=== PATIENT | male | born 1945 | race Caucasian/White ===

== ENCOUNTER 2018-05-06 10:21 | Emergency (ER) | payer MEDICARE, BC ==
[2018-05-06 10:43] LABS: BILIRUBIN,URINE NEGATIVE (NEGATIVE); GLUCOSE, URINE (UA) >=1000 mg/dL (NEGATIVE); KETONES,URINE (UA) 15 mg/dL (NEGATIVE); LEUKOCYTE ESTERASE, URINE NEGATIVE (NEGATIVE); NITRITE,URINE NEGATIVE (NEGATIVE); OCCULT BLOOD,URINE MODERATE (NEGATIVE); PROTEIN,URINE NEGATIVE (NEGATIVE); UROBILINOGEN,URINE 0.2 (NORMAL) E.U./dL (NORMAL)
[2018-05-06 10:45] LABS: CLARITY,URINE CLEAR (CLEAR)
[2018-05-06 10:48] LABS: BACTERIA,URINE Rare /HPF (None Seen); SQUAMOUS EPITHELIAL CELL,UR RARE Squamous (<= Few)
--- NOTE | 2018-05-06 12:13 | ED Physician Documentation ---
History of Present Illness - Stated complaint Stated Complaint: R SIDE PX - Chief complaint Chief Complaint: General - History obtained from History obtained from: Patient - History of Present Illness Timing: Last night (This is a 72-year-old gentleman without a formal diagnosis of renal colic who for the last year or so has had short episodes of right flank pain. Last night it lasted all night and was severe with nausea but no vomiting. It does not radiate and has not moved. The pain at this juncture is mild. He denies any gross hematuria. He is approximately 3 years out from valve repair and he is on warfarin for atrial fibrillation.) Review of Systems Ten Systems: 10 systems reviewed and negative Constitutional: reports: Sweats. denies: Fever, Chills GI: reports: Nausea. denies: Abdominal Pain, Vomiting : denies: Dysuria, Frequency, Hesitancy PD PAST MEDICAL HISTORY - Present Medications Home Medications: Ambulatory Orders Medication Instructions Recorded Confirmed Hydrocodone/Acetaminophen 1 - 2 each PO Q6H PRN #14 tablet 05/06/18 [Hydrocodon-Acetaminophen 5-325] RX: Glipizide 5 PO BID 05/06/18 RX: Metoprolol Succinate 25 PO DAILY 05/06/18 RX: Warfarin Sodium PO 05/06/18 RX: Warfarin Sodium [Coumadin] 05/06/18 RX: diltiaZEM [Cardizem] 120 DAILY 05/06/18 RX: metFORMIN [Glucophage] 1,000 PO BID 05/06/18 Tamsulosin [Flomax] 0.4 mg PO DAILY #14 capsule 05/06/18 - Allergies Allergies/Adverse Reactions: Allergies Allergy/AdvReac Type Severity Reaction Status Date / Time No Known Drug Allergies Allergy Verified 05/06/18 13:13 PD ED PE NORMAL - Vitals Vital signs reviewed: Yes - General General: Alert and oriented X 3, No acute distress - Abdomen Abdomen: Normal bowel sounds, Soft, Non tender - Back Back: No CVA TTP, No spinal TTP - Extremities Extremities: No edema, No calf tenderness / cord - Neuro Neuro: Alert and oriented X 3, Normal speech - Psych Psych: Normal mood, Normal affect Results - Vitals Vitals: Vital Signs - 24 hr 05/06/18 05/06/18 10:27 13:00 Temperature 36.3 C L 37.1 C Heart Rate 73 62 Respiratory 16 18 Rate Blood Pressure 132/63 H 139/71 H O2 Saturation 99 98 Oxygen O2 Source Room air - Labs Labs: Laboratory Tests 05/06/18 05/06/18 05/06/18 10:30 12:34 12:34 WBC 13.3 H RBC 4.76 Hgb 14.5 Hct 43.3 MCV 91.0 MCH 30.6 MCHC 33.6 RDW 12.9 Plt Count 201 MPV 6.7 L Neut # (Auto) 11.4 H Lymph # (Auto) 0.9 L [place] # (Auto) 0.8 Eos # (Auto) 0.0 Baso # (Auto) 0.1 Absolute Nucleated RBC 0.01 Nucleated RBC % 0.0 PT 28.2 H INR 2.5 H Sodium Potassium Chloride Carbon Dioxide Anion Gap BUN Creatinine Estimated GFR (MDRD) Glucose Calcium Total Bilirubin AST ALT Alkaline Phosphatase Total Protein Albumin Globulin Albumin/Globulin Ratio Lipase Urine Color YELLOW Urine Clarity CLEAR Urine pH 6.0 Ur Specific [place] >=1.030 H Urine Protein NEGATIVE Urine Glucose (UA) >=1000 H Urine Ketones 15 H Urine Occult Blood MODERATE H Urine Nitrite NEGATIVE Urine Bilirubin NEGATIVE Urine Urobilinogen 0.2 (NORMAL) Ur Leukocyte Esterase NEGATIVE Urine RBC 6-10 H Urine WBC 0-3 Ur Squamous Epith Cells RARE Squamous Urine Bacteria Rare Ur Microscopic Review INDICATED Urine Culture Comments NOT INDICATED 05/06/18 12:34 WBC RBC Hgb Hct MCV MCH MCHC RDW Plt Count MPV Neut # (Auto) Lymph # (Auto) [place] # (Auto) Eos # (Auto) Baso # (Auto) Absolute Nucleated RBC Nucleated RBC % PT INR Sodium 136 Potassium 4.0 Chloride 99 L Carbon Dioxide 27 Anion Gap 10.0 BUN 30 H Creatinine 1.7 H Estimated GFR (MDRD) 40 L Glucose 164 H Calcium 10.0 Total Bilirubin 0.7 AST 33 ALT 21 Alkaline Phosphatase 69 Total Protein 8.6 H Albumin 4.9 Globulin 3.7 Albumin/Globulin Ratio 1.3 Lipase 31 Urine Color Urine Clarity Urine pH Ur Specific [place] Urine Protein Urine Glucose (UA) Urine Ketones Urine Occult Blood Urine Nitrite Urine Bilirubin Urine Urobilinogen Ur Leukocyte Esterase Urine RBC Urine WBC Ur Squamous Epith Cells Urine Bacteria Ur Microscopic Review Urine Culture Comments - Rads (name of study) CT KUB Radiology: EMP read contemporaneously (3 mm right mid ureteral stone with obstruction, left nephrolithiasis.) PD MEDICAL DECISION MAKING - ED course ED course: 72-year-old gentleman anticoagulated for atrial fibrillation presents with right flank pain most consistent with renal colic but the differential diagnosis would also include AAA and other vascular abnormality. CT scan proves a diagnosis of a 3 mm ureterolith. He declined any pain medication here but he was given as needed prescription for hydrocodone as well as Flomax. Given his tenuous renal function he was advised to push fluids and avoid NSAIDs. He will follow-up with urologist. Departure - Departure Disposition: Home, Self Care Clinical Impression: Renal colic on right side, Adequate anticoagulation on anticoagulant therapy Condition: Good Record reviewed to determine appropriate education?: Yes Instructions: ED Stone Renal W Colic Prescriptions: Hydrocodone/Acetaminophen [Hydrocodon-Acetaminophen 5-325] 1 - 2 each PO Q6H PRN #14 tablet PRN Reason: pain Tamsulosin [Flomax] 0.4 mg PO DAILY #14 capsule Comments: Your INR today is 2.5 which is fine. He should drink plenty of fluids, you appear dehydrated on your lab work. Drink at least 8 glasses of water a day. He should follow-up with urologist, my recommendation will be Dr. Millan in [place], the phone number is [phone]. Return if worse. Avoid nonsteroidal anti-inflammatory drugs such as ibuprofen or Aleve. Discharge Date/Time: 05/06/18 13:27
[2018-05-06 12:49] LABS: BASOPHILS # (AUTO) 0.1 10^3/uL (0.0-0.1); BASOPHILS % (AUTO) 0.6 %; HGB - HEMOGLOBIN 14.5 g/dL (14.0-18.0); LYMPHOCYTES # (AUTO) 0.9 10^3/uL (1.5-3.5); LYMPHOCYTES % (AUTO) 6.8 %; MEAN CORPUSCULAR HEMOGLOBIN 30.6 pg (27.0-31.0); MEAN CORPUSCULAR HGB CONC 33.6 g/dL (32.0-36.0); MEAN PLATELET VOLUME 6.7 fL (7.4-11.4); MONOCYTES # (AUTO) 0.8 10^3/uL (0.0-1.0); MONOCYTES % (AUTO) 6.3 %; NEUTROPHILS # (AUTO) 11.4 10^3/uL (1.5-6.6); NEUTROPHILS % (AUTO) 86.3 %; PLT - PLATELET COUNT 201 10^3/uL (130-450); RED BLOOD COUNT 4.76 10^6/uL (4.70-6.10); RED CELL DISTRIBUTION WIDTH 12.9 % (12.0-15.0); WHITE BLOOD COUNT 13.3 x10^3/uL (4.8-10.8)
[2018-05-06 12:53] LABS: ALBUMIN 4.9 g/dL (3.2-5.5); ALBUMIN/GLOBULIN RATIO 1.3 (1.0-2.2); BILIRUBIN,TOTAL 0.7 mg/dL (0.2-1.0); CREATININE 1.7 mg/dL (0.6-1.2); INR 2.5 (0.8-1.2); PT - PROTHROMBIN TIME 28.2 secs (9.9-12.6); TOTAL PROTEIN 8.6 g/dL (6.7-8.2)
--- NOTE | 2018-05-06 13:11 | CT Report ---
Reason: R flank pain Procedure Date: 05/06/2018 Accession Number: [id number] / [id number] Procedure: CT - Abdomen/Pelvis W/O CPT Code: FULL RESULT: EXAM: CT ABDOMEN AND PELVIS (CT KUB) EXAM DATE: 05/06/2018 12:49 PM. CLINICAL HISTORY: Right flank pain. COMPARISONS: None. TECHNIQUE: Routine axial helical CT imaging was performed through the abdomen and pelvis without IV contrast. Reconstructions: Coronal and sagittal. In accordance with CT protocol optimization, one or more of the following dose reduction techniques were utilized for this exam: automated exposure control, adjustment of mA and/or KV based on patient size, or use of iterative reconstructive technique. FINDINGS: Lung Bases: Unremarkable. Right Kidney/Ureter: There is moderate right-sided hydronephrosis and perinephric fat stranding with a 3 mm obstructing stone in the right mid ureter. No additional kidney stones. Left Kidney/Ureter: Nonobstructing 2 mm stone is seen in the lower pole left kidney. No hydronephrosis. Other Solid Organs: Noncontrast images of the solid organs demonstrate no acute findings. Subcentimeter hypodensities in the liver is seen, too small to further characterize but probable small cyst (image 14/3). Gallbladder/Bile Ducts: Unremarkable. Peritoneal Cavity: There is minimal predominantly left hemicolon diverticulosis without evidence of diverticulitis. There is no obstruction or ileus. No free fluid or free air. Pelvic Organs: No bladder stones or wall thickening. Noncontrast images of the visualized pelvic organs are unremarkable. Vasculature: Unremarkable. Other: Diffuse degenerative and scoliotic changes are seen in the spine. No acute osseous abnormality is demonstrated. IMPRESSION: 1. Moderate right-sided hydronephrosis with 3 mm obstructing stone in the right mid ureter. 2. Left-sided nephrolithiasis without hydronephrosis. 3. Minimal colonic diverticulosis. RADIA
[2018-05-06 13:13] VITALS: BP 139/71
== END 2018-05-06 13:27 | disposition home or self-care (01) ==
LOC: ED 10:21
DX: N13.2 Hydronephrosis with renal and ureteral calculous obstruction (principal); Z86.79 Personal history of other diseases of the circulatory system; Z79.01 Long term (current) use of anticoagulants
CPT/HCPCS: 36415; 74176; 80053; 81001; 81003; 83690; 85025; 85610; 87086; 99283; 99284

== ENCOUNTER 2019-01-11 23:02 | Emergency (ER) | payer MEDICARE, BC ==
--- NOTE | 2019-01-11 23:20 | ED Physician Documentation ---
PD HPI ABD PAIN - Stated complaint Stated Complaint: BACK SIDE PX - Chief complaint Chief Complaint: Abd Pain - History obtained from History obtained from: Patient - History of Present Illness Timing - onset: Enter time (17:00), Today Timing - duration: Hours Timing - details: Abrupt onset, Waxing and waning Pain level now: 6 Quality: Pain Location: RUQ Radiation: Right flank Improved by: Other (nothing) Worsened by: Other (no exacerbating factors) Associated symptoms: No: Fever, Nausea, Vomiting, Diarrhea, Constipation, Dysuria, Hematuria Similar symptoms before: Diagnosis (similar to previous episode of renal colic (April 2018)) Recently seen: Not recently seen Review of Systems Constitutional: denies: Fever, Chills, Sweats Cardiac: reports: Reviewed and negative Respiratory: reports: Reviewed and negative GI: reports: Abdominal Pain (right flank and right upper parathoracic, not abdominal per se). denies: Nausea, Vomiting, Constipation, Diarrhea : denies: Dysuria, Frequency, Hematuria Musculoskeletal: reports: Back pain PD PAST MEDICAL HISTORY - Past Medical History Neuro: None Endocrine/Autoimmune: Type 2 diabetes : None HEENT: Chronic hearing loss Psych: Depression Musculoskeletal: None - Past Surgical History Cardiovascular: Valve replacement, Pacemaker - Present Medications Home Medications: Ambulatory Orders Medication Instructions Recorded Confirmed Glipizide 5 PO BID 05/06/18 Hydrocodone/Acetaminophen 1 - 2 each PO Q6H PRN #14 tablet 05/06/18 [Hydrocodon-Acetaminophen 5-325] Metoprolol Succinate 25 PO DAILY 05/06/18 Tamsulosin [Flomax] 0.4 mg PO DAILY #14 capsule 05/06/18 Warfarin Sodium PO 05/06/18 Warfarin Sodium [Coumadin] 05/06/18 diltiaZEM [Cardizem] 120 DAILY 05/06/18 metFORMIN [Glucophage] 1,000 PO BID 05/06/18 Oxycodone HCl/Acetaminophen 1 - 2 each PO Q6H PRN #14 tablet 01/12/19 [Percocet 5-325 mg Tablet] Tamsulosin [Flomax] 0.4 mg PO DAILY #10 capsule 01/12/19 - Allergies Allergies/Adverse Reactions: Allergies Allergy/AdvReac Type Severity Reaction Status Date / Time No Known Drug Allergies Allergy Verified 01/11/19 23:10 - Social History Does the pt smoke?: No Smoking Status: Never smoker Does the pt drink ETOH?: No - Immunizations Immunizations are current?: Yes PD ED PE NORMAL - Vitals Vital signs reviewed: Yes - General General: Alert and oriented X 3, No acute distress, Well developed/nourished - Cardiac Cardiac: RRR, No murmur - Respiratory Respiratory: No respiratory distress, Clear bilaterally - Abdomen Abdomen: Soft, Non tender - Back Back: No CVA TTP - Derm Derm: Normal color, Warm and dry, No rash Results - Vitals Vitals: Vital Signs - 24 hr 01/11/19 01/12/19 01/12/19 23:05 00:04 00:27 Temperature 36.6 C 36.8 C Heart Rate 62 68 Respiratory 16 16 Rate Blood Pressure 145/67 H 136/78 H O2 Saturation 99 98 Oxygen O2 Source Room air - Labs Labs: Laboratory Tests 01/11/19 01/11/19 01/11/19 23:12 23:30 23:30 WBC 14.6 H RBC 4.30 L Hgb 13.4 L Hct 39.9 L MCV 92.8 MCH 31.2 H MCHC 33.6 RDW 12.4 Plt Count 173 MPV 8.5 Neut # (Auto) 12.9 H Lymph # (Auto) 0.9 L [place] # (Auto) 0.7 Eos # (Auto) 0.1 Baso # (Auto) 0.0 Absolute Nucleated RBC 0.00 Nucleated RBC % 0.0 PT INR Sodium 138 Potassium 4.2 Chloride 101 Carbon Dioxide 28 Anion Gap 9.0 BUN 29 H Creatinine 1.3 H Estimated GFR (MDRD) 54 L Glucose 236 H Calcium 9.1 Total Bilirubin 0.7 AST 21 ALT 19 Alkaline Phosphatase 58 Total Protein 7.7 Albumin 4.5 Globulin 3.2 Albumin/Globulin Ratio 1.4 Lipase 36 Urine Color YELLOW Urine Clarity CLEAR Urine pH 6.0 Ur Specific [place] 1.020 Urine Protein TRACE Urine Glucose (UA) 500 H Urine Ketones TRACE Urine Occult Blood LARGE H Urine Nitrite NEGATIVE Urine Bilirubin NEGATIVE Urine Urobilinogen 0.2 (NORMAL) Ur Leukocyte Esterase NEGATIVE Urine RBC 6-10 H Urine WBC 0-3 Ur Squamous Epith Cells FEW Squamous Urine Bacteria Rare Ur Microscopic Review INDICATED Urine Culture Comments NOT INDICATED 01/11/19 23:30 WBC RBC Hgb Hct MCV MCH MCHC RDW Plt Count MPV Neut # (Auto) Lymph # (Auto) [place] # (Auto) Eos # (Auto) Baso # (Auto) Absolute Nucleated RBC Nucleated RBC % PT 28.3 H INR 2.5 H Sodium Potassium Chloride Carbon Dioxide Anion Gap BUN Creatinine Estimated GFR (MDRD) Glucose Calcium Total Bilirubin AST ALT Alkaline Phosphatase Total Protein Albumin Globulin Albumin/Globulin Ratio Lipase Urine Color Urine Clarity Urine pH Ur Specific [place] Urine Protein Urine Glucose (UA) Urine Ketones Urine Occult Blood Urine Nitrite Urine Bilirubin Urine Urobilinogen Ur Leukocyte Esterase Urine RBC Urine WBC Ur Squamous Epith Cells Urine Bacteria Ur Microscopic Review Urine Culture Comments PD MEDICAL DECISION MAKING - ED course Complexity details: reviewed old records, reviewed results, re-evaluated patient, considered differential, d/w patient, d/w family ED course: patient says his symptoms are the same as episode of renal colic he had in April; at that time, he was evaluated in this ED and w/u included CT A/P which demonstrated ureteral stone. Tonight, hematuria on UA and remainder of labs reassuring (creatinine improved compared to April). Presentation and results are c/w renal colic and thus imaging not performed at this time. He was reluctant to take any analgesics but releneted shortly before discharge home, given take-home percocet of which he took two before leaving ED (being driven home). Departure - Departure Disposition: Home, Self Care Clinical Impression: Renal colic on right side, Adequate anticoagulation on anticoagulant therapy Condition: Good Instructions: ED Stone Renal W Colic Follow-Up: Sony Spencer MD [Primary Care Provider] - Prescriptions: Oxycodone HCl/Acetaminophen [Percocet 5-325 mg Tablet] 1 - 2 each PO Q6H PRN #14 tablet PRN Reason: pain Tamsulosin [Flomax] 0.4 mg PO DAILY #10 capsule Comments: You should follow up with a urologist if possible. If you do not have a urologist, you can contact your insurance provider or your primary care physician's office to ask for a referral. Discharge Date/Time: 01/12/19 00:28
[2019-01-11 23:21] LABS: BILIRUBIN,URINE NEGATIVE (NEGATIVE); GLUCOSE, URINE (UA) 500 mg/dL (NEGATIVE); KETONES,URINE (UA) TRACE mg/dL (NEGATIVE); LEUKOCYTE ESTERASE, URINE NEGATIVE (NEGATIVE); NITRITE,URINE NEGATIVE (NEGATIVE); OCCULT BLOOD,URINE LARGE (NEGATIVE); PROTEIN,URINE TRACE mg/dL (NEGATIVE); UROBILINOGEN,URINE 0.2 (NORMAL) E.U./dL (NORMAL)
[2019-01-11 23:22] LABS: CLARITY,URINE CLEAR (CLEAR)
[2019-01-11 23:34] LABS: BASOPHILS % (AUTO) 0.2 %; EOSINOPHILS # (AUTO) 0.1 10^3/uL (0.0-0.7); EOSINOPHILS % (AUTO) 0.4 %; HGB - HEMOGLOBIN 13.4 g/dL (14.0-18.0); LYMPHOCYTES # (AUTO) 0.9 10^3/uL (1.5-3.5); LYMPHOCYTES % (AUTO) 5.9 %; MEAN CORPUSCULAR HEMOGLOBIN 31.2 pg (27.0-31.0); MEAN CORPUSCULAR HGB CONC 33.6 g/dL (32.0-36.0); MEAN CORPUSCULAR VOLUME 92.8 fL (80.0-94.0); MEAN PLATELET VOLUME 8.5 fL (7.4-11.4); MONOCYTES # (AUTO) 0.7 10^3/uL (0.0-1.0); MONOCYTES % (AUTO) 4.5 %; NEUTROPHILS # (AUTO) 12.9 10^3/uL (1.5-6.6); NEUTROPHILS % (AUTO) 88.3 %; PLT - PLATELET COUNT 173 10^3/uL (130-450); RED CELL DISTRIBUTION WIDTH 12.4 % (12.0-15.0); WHITE BLOOD COUNT 14.6 x10^3/uL (4.8-10.8)
[2019-01-11 23:45] LABS: INR 2.5 (0.8-1.2); PT - PROTHROMBIN TIME 28.3 secs (9.9-12.6)
[2019-01-11 23:47] LABS: ALBUMIN 4.5 g/dL (3.2-5.5); ALBUMIN/GLOBULIN RATIO 1.4 (1.0-2.2); BILIRUBIN,TOTAL 0.7 mg/dL (0.2-1.0); CALCIUM 9.1 mg/dL (8.5-10.3); CREATININE 1.3 mg/dL (0.6-1.2); TOTAL PROTEIN 7.7 g/dL (6.7-8.2)
[2019-01-11 23:48] LABS: BACTERIA,URINE Rare /HPF (None Seen); SQUAMOUS EPITHELIAL CELL,UR FEW Squamous (<= Few)
[2019-01-12] MEDS ORDERED: oxyCODONE/ACET 5/325 Prepack 4 PO STA (00:14)
[2019-01-12] MEDS ORDERED: TAMSULOSIN 0.4 MG CAPSULE PO STA (00:14)
[2019-01-12 00:28] VITALS: BP 136/78
== END 2019-01-12 00:28 | disposition home or self-care (01) ==
LOC: ED 23:02
DX: N23 Unspecified renal colic (principal); R31.9 Hematuria, unspecified; Z87.442 Personal history of urinary calculi; Z79.01 Long term (current) use of anticoagulants; Z95.2 Presence of prosthetic heart valve; E11.9 Type 2 diabetes mellitus without complications; Z79.84 Long term (current) use of oral hypoglycemic drugs
CPT/HCPCS: 36415; 80053; 81001; 83690; 85025; 85610; 99283; 99284; A9270; 81003; 87086

== ENCOUNTER 2019-03-01 09:46 | Outpatient (CLI) | payer MEDICARE, BC ==
[2019-03-01 10:11] LABS: BASOPHILS % (AUTO) 0.3 %; EOSINOPHILS # (AUTO) 0.1 10^3/uL (0.0-0.7); EOSINOPHILS % (AUTO) 1.7 %; LYMPHOCYTES # (AUTO) 0.9 10^3/uL (1.5-3.5); MEAN CORPUSCULAR HEMOGLOBIN 30.8 pg (27.0-31.0); MEAN CORPUSCULAR HGB CONC 32.7 g/dL (32.0-36.0); MEAN CORPUSCULAR VOLUME 94.3 fL (80.0-94.0); MEAN PLATELET VOLUME 8.8 fL (7.4-11.4); MONOCYTES # (AUTO) 0.5 10^3/uL (0.0-1.0); MONOCYTES % (AUTO) 6.9 %; NEUTROPHILS # (AUTO) 5.5 10^3/uL (1.5-6.6); NEUTROPHILS % (AUTO) 77.8 %; PLT - PLATELET COUNT 190 10^3/uL (130-450); RED BLOOD COUNT 4.54 10^6/uL (4.70-6.10); RED CELL DISTRIBUTION WIDTH 12.4 % (12.0-15.0)
[2019-03-01 10:26] LABS: CALCIUM 9.5 mg/dL (8.5-10.3); CREATININE 1.1 mg/dL (0.6-1.2)
[2019-03-01] MEDS ORDERED: IOVERSOL 320 100 ML VIAL IVP ONE ×2 (10:28→10:49)
--- NOTE | 2019-03-02 08:54 | CT Report ---
Reason: MICROHEMATURIA Procedure Date: 03/01/2019 Accession Number: [id number] / [id number] Procedure: CT - IVP CPT Code: Final Report FULL RESULT: EXAM: CT ABDOMEN AND PELVIS WITHOUT AND WITH CONTRAST (CT IVP) EXAM DATE: 03/01/2019 10:59 AM. CLINICAL HISTORY: Microhematuria. COMPARISONS: ABDOMEN/PELVIS W/O 05/06/2018 12:39 PM. TECHNIQUE: Routine helical imaging was performed through the kidneys, ureters and bladder in the precontrast, postcontrast and delayed phase. IV Contrast: OPTI 320; 100 mL. Reconstructions: Coronal and sagittal. In accordance with CT protocol optimization, one or more of the following dose reduction techniques were utilized for this exam: automated exposure control, adjustment of mA and/or KV based on patient size, or use of iterative reconstructive technique. FINDINGS: Lung Bases: Unremarkable. Stable borderline cardiac enlargement and transvenous cardiac leads. Liver: A stable small hypodensity likely represents a cyst. Gallbladder/Bile Ducts: Unremarkable. Spleen: Normal. Pancreas: Normal. Adrenal Glands: Normal. Kidneys/Bladder: Right Kidney/Ureter: Again demonstrated is a proximal ureteral calculus near the level of the previously demonstrated calculus. The calculus measures 4.5 mm and is at the upper L4 level. There is mild hydronephrosis and proximal ureteral dilatation, decreased from the prior exam. There is also a decrease in the perinephric stranding which is now mild and symmetric with the left. The delayed images demonstrate no significant delayed enhancement or excretion. Contrast opacifies the entire right ureter. This is consistent with a partially obstructing calculus. There is a segment of irregular narrowing of the mid right ureter which may be related to peristalsis. A stenosis cannot be excluded. No heidy filling defect or extrinsic abnormality demonstrated at that level. No other urolithiasis demonstrated. No renal mass. Left Kidney/Ureter: No renal or ureteral stones. No hydronephrosis or hydroureter. No masses. Bladder: No stones. No wall thickening or mass. Peritoneal Cavity/Bowel: Colonic diverticulosis without evidence of diverticulitis. No free fluid, free air or adenopathy. No masses or acute inflammatory process. The appendix appears normal. Pelvic Organs: Visualized pelvic organs are unremarkable. Vasculature: Calcifications, without an aneurysm. Bones: Spine degenerative disease. No acute abnormalities. Other: Minimal fat-containing umbilical hernia. IMPRESSION: 1. Partially obstructing 4.5 mm proximal right ureteral calculus. 2. A short segment of possible irregular narrowing of the right ureter may be incidental and related to peristalsis. A stricture is not excluded. 3. Stable chronic findings, as above. RADIA
== END 2019-03-01 09:47 | disposition home or self-care (01) ==
LOC: DI 09:46
PROVIDERS: ATTEND Urology
DX: N13.2 Hydronephrosis with renal and ureteral calculous obstruction (principal); K42.9 Umbilical hernia without obstruction or gangrene; K57.30 Diverticulosis of large intestine without perforation or abscess without bleeding
CPT/HCPCS: 36415; 74178; 80048; 85025; Q9967

== ENCOUNTER 2019-03-12 15:38 | Outpatient (CLI) | payer MEDICARE, BC ==
--- NOTE | 2019-03-13 13:50 | XRAY Report ---
Reason: URETERAL CALCULUS, PRE OP, A FIB Procedure Date: 03/12/2019 Accession Number: [id number] / [id number] Procedure: XR - Chest 2 View X-Ray CPT Code: 79305 Final Report FULL RESULT: EXAM: CHEST RADIOGRAPHY EXAM DATE: 03/12/2019 03:59 PM. CLINICAL HISTORY: URETERAL CALCULUS, PRE OP, A FIB. COMPARISON: None. TECHNIQUE: 2 views. FINDINGS: Lungs/Pleura: No focal opacities evident. No pleural effusion. No pneumothorax. Mild bilateral hyperinflation. Mediastinum: Normal heart size. Status post median sternotomy and cardiac surgery. Transvenous cardiac leads, in expected position. Other: None. IMPRESSION: 1. No definite acute abnormality of the chest. 2. Mild pulmonary hyperinflation. RADIA
== END 2019-03-12 15:39 | disposition home or self-care (01) ==
LOC: DI 15:38
PROVIDERS: ATTEND Urology
DX: Z01.818 Encounter for other preprocedural examination (principal); N20.1 Calculus of ureter; I48.91 Unspecified atrial fibrillation
CPT/HCPCS: 71046; 93005

== ENCOUNTER 2019-04-09 13:33 | Outpatient (CLI) | payer MEDICARE, BC ==
--- NOTE | 2019-04-14 09:17 | XRAY Report ---
Reason: URETAL CALCULUS Procedure Date: 04/09/2019 Accession Number: [id number] / [id number] Procedure: XR - Abdomen 1 View X-Ray CPT Code: 57938 Final Report FULL RESULT: EXAM: ABDOMEN RADIOGRAPHY EXAM DATE: 04/09/2019 01:49 PM HISTORY: URETAL CALCULUS COMPARISON: NONE TECHNIQUE: SINGLE AP VIEW FINDINGS: Unremarkable bowel gas pattern. No abnormal distention. Small amount of stool in the colon. Intact and unremarkable right nephroureteral stent with appropriately looped and positioned proximal and distal terminations. There appears to be an approximately 4 mm calculus adjacent to the proximal aspect of the stent, likely at the right UPJ level. No other calculus seen along the course of the stent. Focal high density in the paraspinal region on the left appears to be the tip of the transverse process at L3. There is also a 1 x 3 mm linear density projecting the region of the left kidney inferior pole which could be a true renal calculus. No organomegaly. Moderate lumbar spondylosis and mild levo convexity. IMPRESSION: Intact and well-positioned right nephroureteral stent with apparent proximal 4 mm calculus at the UPJ region. Question of small calculus of the left kidney inferior pole. RADIA
== END 2019-04-09 13:34 | disposition home or self-care (01) ==
LOC: DI 13:33
PROVIDERS: ATTEND Urology
DX: N20.1 Calculus of ureter (principal)
CPT/HCPCS: 74018

== ENCOUNTER 2019-05-08 11:11 | Outpatient (CLI) | payer MEDICARE, BC | END 2019-05-08 11:12 | disposition home or self-care (01) | LOC: RT 11:11 | PROVIDERS: ATTEND Urology | DX: Z01.810 Encounter for preprocedural cardiovascular examination (principal); N20.1 Calculus of ureter; I48.91 Unspecified atrial fibrillation | CPT/HCPCS: 93005 ==

== ENCOUNTER 2020-03-14 13:01 | Outpatient (CLI) | payer MEDICARE, BC ==
--- NOTE | 2020-03-14 16:43 | XRAY Report ---
PROCEDURE: Abdomen 1 View X-Ray INDICATIONS: URETERAL CALCULUS TECHNIQUE: 1 view of the abdomen were acquired. COMPARISON: X-ray abdomen 04/09/2019 FINDINGS: Surgical changes and devices: None. Bowel: No pneumoperitoneum. The bowel gas pattern is normal. Soft tissues: No masses; visualized solid organ contours appear normal in size. No suspicious abdom inal calcifications. Bones: No suspicious bony abnormalities. IMPRESSION: No visualized calcification overlying the expected course of the kidneys or ureters. Reviewed by: Salima Mast MD on 03/14/2020 4:41 PM PST Approved by: Salima Mast MD on 03/14/2020 4:41 PM PST Station ID: [id number]
== END 2020-03-14 13:02 | disposition home or self-care (01) ==
LOC: DI 13:01
PROVIDERS: ATTEND Urology
DX: N20.1 Calculus of ureter (principal)
CPT/HCPCS: 74018

== ENCOUNTER 2021-03-27 21:17 | Outpatient (CLI) | payer MEDICARE, BC ==
--- NOTE | 2021-03-27 23:36 | Ultrasound Report ---
PROCEDURE: Duplex Ext Veins Left INDICATIONS: CONTUSION OF LEFT LOWER LEG, INITIAL ENCOUNTER TECHNIQUE: Real-time imaging, as well as color and pulse Doppler interrogation, were performed of the lower extr emity deep veins from the inguinal ligament to the popliteal fossa. COMPARISON: None. FINDINGS: The deep veins are normally compressible, and free of intraluminal thrombus. Color and pu lse Doppler demonstrate normal phasic intraluminal flow. There is normal augmentation response to di stal compression maneuver. Nonspecific soft tissue edema is seen in the calf. An ovoid avascular lesion is seen in the medial ca lf measuring 1.5 x 1.1 x 1.7 cm, likely representing a small hematoma. Fluid is seen tracking along t he between muscular layers measuring approximately 4.9 x 0.6 x 1.6 cm. A focal heterogeneously hyperechoic lesion in the left proximal thigh measuring 1.7 x 0.7 x 2.7 cm co uld represent a lipoma, among other benign and malignant soft tissue masses. IMPRESSION: 1.No sonographic evidence of deep venous thrombosis in the left lower extremity. 2.Complex fluid collections are seen in the posterior medial lower leg deep to the gastrocnemius musc le that may represent a small hematoma related to a muscular injury. MRI of the tibia/fibula be obtai kay for further evaluation if indicated clinically. 3.Possible 2.7 cm hyperechoic circumscribed masslike lesion in the proximal thigh could represent a l ipoma among other benign or malignant soft tissue masses. If indicated clinically, a left femur MRI c ould be obtained to further investigate. Reviewed by: Ryley Qiu MD on 03/27/2021 11:35 PM PST Approved by: Ryley Qiu MD on 03/27/2021 11:35 PM PST Station ID: [id number]
== END 2021-03-27 21:18 | disposition home or self-care (01) ==
LOC: DI 21:17
PROVIDERS: ATTEND Physician Assistant
DX: S80.12XA Contusion of left lower leg, initial encounter (principal); R93.6 Abnormal findings on diagnostic imaging of limbs; R93.89 Abnormal findings on diagnostic imaging of other specified body structures

== ENCOUNTER 2023-07-16 08:00 | Outpatient (CLI) | payer MEDICARE, BC | END 2023-07-16 23:59 | disposition home or self-care (01) | LOC: LAB.N 08:00 | PROVIDERS: ATTEND Registered Nurse | DX: R52 Pain, unspecified (principal); R53.83 Other fatigue; R53.81 Other malaise; S80.12XA Contusion of left lower leg, initial encounter; R81 Glycosuria; R31.9 Hematuria, unspecified; R82.79 Other abnormal findings on microbiological examination of urine | CPT/HCPCS: 82962; 87637 ==

== ENCOUNTER 2023-07-16 08:00 | Outpatient (CLI) | payer MEDICARE, BC ==
[2023-07-16 17:39] LABS: INFLUENZA A- RESP PCR PANEL NOT DETECTED; INFLUENZA B - RESP PCR PANEL NOT DETECTED; RSV- RESP PCR PANEL NOT DETECTED; SARS-CoV-2 -RESP PCR PANEL NOT DETECTED
== END 2023-07-16 23:59 | disposition home or self-care (01) ==
LOC: LAB.N 08:00
PROVIDERS: ATTEND Registered Nurse
DX: R81 Glycosuria (principal); R52 Pain, unspecified; R53.83 Other fatigue; R31.9 Hematuria, unspecified; R82.79 Other abnormal findings on microbiological examination of urine; R05.1 Acute cough; R53.81 Other malaise; S80.12XA Contusion of left lower leg, initial encounter
CPT/HCPCS: 87086; 87637

== ENCOUNTER 2023-07-16 16:01 | Outpatient (CLI) | payer MEDICARE, BC ==
--- NOTE | 2023-07-18 07:49 | XRAY Report ---
PROCEDURE: Chest 2V INDICATIONS: BODY ACHES TECHNIQUE: 2 views of the chest were acquired. COMPARISON: None. FINDINGS: Surgical changes and devices: Patient is status post median sternotomy. Cardiac pacemaker is unremar kable. Lungs and pleura: No pleural effusions or pneumothorax. Lungs are clear. Mediastinum: Mediastinal contours appear normal. Heart size is normal. Bones and chest wall: No suspicious bony lesions. Overlying soft tissues appear unremarkable. IMPRESSION: No acute cardiopulmonary process. Reviewed by: Shanta Marin MD on 07/18/2023 7:47 AM PDT Approved by: Shanta Marin MD on 07/18/2023 7:47 AM PDT Station ID: [id number]
== END 2023-07-16 16:02 | disposition home or self-care (01) ==
LOC: DI 16:01
PROVIDERS: ATTEND Registered Nurse
DX: M79.10 Myalgia, unspecified site (principal); R53.83 Other fatigue; R53.81 Other malaise; R81 Glycosuria; R52 Pain, unspecified; R31.9 Hematuria, unspecified; R82.79 Other abnormal findings on microbiological examination of urine; R05.1 Acute cough; S80.12XA Contusion of left lower leg, initial encounter
CPT/HCPCS: 87086; 87637

== ENCOUNTER 2023-09-02 13:19 | Emergency (ER) | payer MEDICARE, BC ==
--- NOTE | 2023-09-02 13:43 | ED Physician Documentation ---
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 No focal weaknesses. Normal speech.) Timing - details: Abrupt onset, Now resolved (improving with now memory of events from earlier today and yesterday, but does not remember events occurred during the memory loss event.) Quality / character: Confused (more pointedly, with acute short term/recent memory deficit of the day and yesterday.) Associated symptoms: No: Fever, Headache, Focal weakness (he wasa ble to walk without imbalance, normal articulation and content of speech, just not able to remember events currently/recent.) Contributing factors: No: Recent med change, Recent illness Basline status: Alert and oriented X 3, Ambulatory Similar symptoms before: Has not had sx before Review of Systems Constitutional: denies: Fever Eyes: denies: Loss of vision Nose: denies: Rhinorrhea / runny nose, Congestion Throat: denies: Sore throat Respiratory: denies: Cough Neurologic: reports: Confused. denies: Focal weakness, Difficulty speaking, Near syncope, Altered mental status, Head injury PD PAST MEDICAL HISTORY - Past Medical History Neuro: None Endocrine/Autoimmune: Type 2 diabetes : None HEENT: Chronic hearing loss Psych: Depression Musculoskeletal: None - Past Surgical History Past Surgical History: Yes Cardiovascular: Valve replacement, Pacemaker - Present Medications Home Medications: Ambulatory Orders Medication Instructions Recorded Confirmed Warfarin Sodium 7.5 mg PO DAILY 05/06/18 09/02/23 diltiaZEM [Cardizem] 120 mg PO DAILY 05/06/18 09/02/23 glipiZIDE [Glipizide] 5 mg PO BID 05/06/18 09/02/23 metFORMIN [Glucophage] 500 mg PO BID 05/06/18 09/02/23 Rosuvastatin Calcium 5 mg PO DAILY 09/02/23 09/02/23 Sotalol [Betapace] 80 mg PO BID 09/02/23 09/02/23 lisinopriL [Zestril] 5 mg PO DAILY 09/02/23 09/02/23 - Allergies Allergies/Adverse Reactions: Allergies Allergy/AdvReac Type Severity Reaction Status Date / Time No Known Drug Allergies Allergy Verified 01/11/19 23:10 - Social History Does the pt smoke?: No Smoking Status: Never smoker Does the pt drink ETOH?: No Does the pt have substance abuse?: No - Immunizations Immunizations are current?: Yes - POLST Patient has POLST: No PD ED PE NORMAL - Vitals Vital signs reviewed: Yes - General General: Alert and oriented X 3, No acute distress, Well developed/nourished - HEENT HEENT: Atraumatic - Neck Neck: Supple, no meningeal sign, No adenopathy, No bruit - Cardiac Cardiac: RRR, No murmur - Respiratory Respiratory: No respiratory distress, Clear bilaterally - Abdomen Abdomen: Soft, Non tender - Derm Derm: Normal color, Warm and dry - Extremities Extremities: No tenderness to palpate, Normal ROM s pain, No edema - Neuro Neuro: Alert and oriented X 3, 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, No motor deficit, No sensory deficit, Normal speech Eye Opening: Spontaneous Motor: Obeys Commands Verbal: Oriented GCS Score: 15 Results - Vitals Vitals: Vital Signs - 24 hr 09/02/23 09/02/23 09/02/23 13:31 13:50 16:12 Temperature 36.5 C Heart Rate 70 69 60 Respiratory 18 18 16 Rate Blood Pressure 122/57 L 136/70 H 120/59 L O2 Saturation 99 98 99 09/02/23 16:40 Temperature 36.5 C Heart Rate 60 Respiratory 16 Rate Blood Pressure 120/59 L O2 Saturation 98 Oxygen O2 Source Room air - Labs Labs: Laboratory Tests 09/02/23 09/02/23 09/02/23 14:24 14:24 14:24 WBC 7.1 RBC 3.98 L Hgb 12.0 L Hct 37.4 L MCV 94.0 MCH 30.2 MCHC 32.1 RDW 12.5 Plt Count 197 MPV 8.8 Neut # (Auto) 4.8 Lymph # (Auto) 1.5 [place] # (Auto) 0.7 Eos # (Auto) 0.2 Baso # (Auto) 0.0 Absolute Nucleated RBC 0.00 Nucleated RBC % 0.0 ESR 24 H PT INR Sodium 138 Potassium 4.4 Chloride 104 Carbon Dioxide 26 Anion Gap 8.0 BUN 35 H Creatinine 1.5 H Estimated GFR (MDRD) 45 L Glucose 149 H Calcium 9.9 Magnesium 1.8 Total Bilirubin 0.5 AST 15 ALT 11 Alkaline Phosphatase 52 Total Protein 6.8 Albumin 4.4 Globulin 2.4 Albumin/Globulin Ratio 1.8 Lipase 35 09/02/23 14:24 WBC RBC Hgb Hct MCV MCH MCHC RDW Plt Count MPV Neut # (Auto) Lymph # (Auto) [place] # (Auto) Eos # (Auto) Baso # (Auto) Absolute Nucleated RBC Nucleated RBC % ESR PT 25.6 H INR 2.4 H Sodium Potassium Chloride Carbon Dioxide Anion Gap BUN Creatinine Estimated GFR (MDRD) Glucose Calcium Magnesium Total Bilirubin AST ALT Alkaline Phosphatase Total Protein Albumin Globulin Albumin/Globulin Ratio Lipase - Rads (name of study) head CT Relevant Findings:: Prelim report reviewed, Discussed with rads, EMP independent interpretation of test (no acute process) head/neck CTA Relevant Findings:: Prelim report reviewed (no vascular abnormality) PD Medical Decision Making - ED course Complexity details: reviewed results (normal CT and CTA. labs with normal sodium, glucose, cbc, etc. Normal heart rhythm. ), re-evaluated patient, considered differential (symptoms acutely of short term memory loss and deposition of new memory for finite time and is improving. No other deficits. Seems more c/w TGA but can assess labs and CT to eval for potential vascular process. ), d/w patient ED course: still not remembering events that occurred when was having the memory deficit, but remembers before and since now. Still seeems c/w transient global amnesia. Departure - Departure Disposition: 01 Home, Self Care Clinical Impression: TGA (transient global amnesia) Condition: Stable Record reviewed to determine appropriate education?: Yes Comments: Your CT of the head as well as the angiogram did not show any acute abnormal ities such as bleeding stroke tumors. There is normal blood flow distribution through the major vessels to the head. Your basic blood test did not show any acute abnormality with normal electrolytes, blood sugar, blood count. Your INR is good at 2.4 At this point the character of the symptoms sounds like a condition called transient global amnesia. It is good that its resolved at this point and its uncommon for her to be recurrent. Continue usual medications. Stay well-hydrated. Follow-up with your primary care if any other symptoms or recurrent episodes. Return if needed. Forms: PCP List Discharge Date/Time: 09/02/23 16:42
[2023-09-02] MEDS: SODIUM CHLORIDE 0.9% 1,000 ML IV STA (14:29)
[2023-09-02 14:34] LABS: BASOPHILS % (AUTO) 0.3 %; EOSINOPHILS # (AUTO) 0.2 10^3/uL (0.0-0.7); EOSINOPHILS % (AUTO) 3.1 %; HCT - HEMATOCRIT 37.4 % (42.0-52.0); LYMPHOCYTES # (AUTO) 1.5 10^3/uL (1.5-3.5); LYMPHOCYTES % (AUTO) 20.5 %; MEAN CORPUSCULAR HEMOGLOBIN 30.2 pg (27.0-31.0); MEAN CORPUSCULAR HGB CONC 32.1 g/dL (32.0-36.0); MEAN PLATELET VOLUME 8.8 fL (7.4-11.4); MONOCYTES # (AUTO) 0.7 10^3/uL (0.0-1.0); MONOCYTES % (AUTO) 9.1 %; NEUTROPHILS # (AUTO) 4.8 10^3/uL (1.5-6.6); NEUTROPHILS % (AUTO) 66.6 %; PLT - PLATELET COUNT 197 10^3/uL (130-450); RED BLOOD COUNT 3.98 10^6/uL (4.70-6.10); RED CELL DISTRIBUTION WIDTH 12.5 % (12.0-15.0); WHITE BLOOD COUNT 7.1 x10^3/uL (4.8-10.8)
[2023-09-02 14:40] LABS: INR 2.4 (0.8-1.2); PT - PROTHROMBIN TIME 25.6 secs (9.9-12.6)
[2023-09-02 14:43] LABS: MAGNESIUM 1.8 mg/dL (1.7-2.3)
[2023-09-02 14:49] LABS: ALBUMIN 4.4 g/dL (3.2-5.5); ALBUMIN/GLOBULIN RATIO 1.8 (1.0-2.2); BILIRUBIN,TOTAL 0.5 mg/dL (0.2-1.0); CALCIUM 9.9 mg/dL (8.5-10.3); CREATININE 1.5 mg/dL (0.6-1.3); POTASSIUM 4.4 mmol/L (3.5-4.5); TOTAL PROTEIN 6.8 g/dL (6.4-8.9)
--- NOTE | 2023-09-02 14:49 | CT Report ---
PROCEDURE: Angio Head/Neck INDICATIONS: memory deficit, confused for 15 min today TECHNIQUE: After the administration of intravenous contrast, 1 mm thick sections acquired from the aortic arch t hrough the [place]. 3-dimensional vlxkohb-nneffkovi-vpvlvbebbd (MIP) and/or volume renderin g reformats were acquired of the central intracranial vasculature and neck separately. For radiation dose reduction, the following was used: automated exposure control, adjustment of mA and/or kV acco rding to patient size. CONTRAST: 80ml omni 300 COMPARISON: Correlation is made with the accompanying imaging. FINDINGS: Image quality: Limited by bolus timing, with venous contamination. HEAD CT: CSF Spaces: Basal cisterns are patent. No extra-axial fluid collections. Ventricles are normal in size and shape. Brain: No significant abnormality is seen for scanning technique. Skull and face: Calvarium and visualized facial bones appear intact, without suspicious lesions. Sinuses: Visualized sinuses and mastoids are clear. HEAD CT ANGIOGRAPHY: Anterior circulation: Intracranial internal carotid arteries are normal in size and flow. The flow within the paired anterior cerebral arteries is normal and symmetric. The flow within the middle cer ebral arteries is normal and symmetric. The anterior communicating artery is seen. No aneurysms are seen. Posterior circulation: Visualized portions of the vertebral arteries demonstrate normal caliber, and join to form a normal appearing basilar artery. Flow within the posterior cerebral arteries is norm al and symmetric. No aneurysms are seen. NECK CT ANGIOGRAPHY: Carotid system: The great vessels demonstrate a conventional anatomy as they arise from the aortic a rch. The origins of the common carotid arteries appear patent. The common carotid arteries demonstr ate normal caliber and courses. The bifurcation regions are both widely patent. The internal caroti d arteries demonstrate normal calibers and courses. Posterior circulation: The origins of the vertebral arteries both appear widely patent. The more santiago perior extracranial portions of both vertebral arteries also demonstrate normal courses and calibers. The left vertebral artery is dominant to the right. Soft tissues: Visualized neck soft tissues demonstrate no suspicious abnormalities. Bones: No suspicious bony lesions. Visualized cervical spine appears normally aligned. Moderate low er cervical spine degenerative change can be seen. Sternotomy changes are noted. IMPRESSION: No significant intracranial arterial abnormality is seen. No significant abnormality is seen within the arteries of the neck. The estimate of stenosis included in the report of the imaging study was calculated using the NASCET method Reviewed by: Jay Nix MD on 09/02/2023 1:47 PM [email or web address] Approved by: Jay Nix MD on 09/02/2023 1:47 PM RADHA Station ID: [id number]
[2023-09-02] MEDS ORDERED: iohexoL-300 100 ML VIAL ONE (15:01)
--- NOTE | 2023-09-02 15:05 | CT Report ---
PROCEDURE: Head W/O Stroke Protocol INDICATIONS: acute confusion/memory deficit 1 hr ago TECHNIQUE: Noncontrast 4.5 mm thick angled axial sections acquired from the foramen magnum to the vertex, with c oronal reformats. For radiation dose reduction, the following was used: automated exposure control, adjustment of mA and/or kV according to patient size. COMPARISON: None. FINDINGS: Image quality: Excellent. CSF spaces: Basal cisterns are patent. No extra-axial fluid collections. Ventricles are normal in size and shape. Brain: No midline shift. No intracranial masses or hemorrhage. Wilkins-white matter interface is norm al. Intracranial carotid calcifications. Age-related volume loss and small vessel ischemic change. 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 Skull and face: Calvarium and visualized facial bones are intact, without suspicious lesions. Sinuses: Visualized sinuses and mastoids are clear. IMPRESSION: No acute intracranial pathology Above discussed with Gurmeet Machado MD at the time of dictation on 09/02/2023 at 1502 hours. This study fulfills neurological imaging criteria for inclusion or exclusion of acute stroke therapie s based on available published neurological imaging guidelines. Reviewed by: Ilia Crespo MD on 09/02/2023 3:03 PM PDT Approved by: Ilia Crespo MD on 09/02/2023 3:03 PM PDT Station ID: [id number]
[2023-09-02 16:22] VITALS: BP 120/59
[2023-09-02 16:50] VITALS: O2SAT 98
[2023-09-02] MEDS: iohexoL-300 100 ML VIAL IVP ONE (18:50)
== END 2023-09-02 16:42 | disposition home or self-care (01) ==
LOC: ED 13:19
DX: G45.4 Transient global amnesia (principal)
CPT/HCPCS: 36415; 70450; 70496; 70498; 80053; 83690; 83735; 85025; 85610; 85651; 93005; 99284; Q9967